=== PATIENT | female | born 1995 | race Hispanic/Latino ===

== ENCOUNTER 2023-08-04 09:18 | Inpatient (IN) | payer MEDICAID, OTHER ==
[2023-08-04 10:23] VITALS: BMI 29.7
[2023-08-04] MEDS ORDERED: Carboprost 250 MCG/ML AMP IM PRN (10:45)
[2023-08-04] MEDS ORDERED: Misoprostol 200 MCG TAB PR PRN (10:45)
[2023-08-04] MEDS ORDERED: Methylergonovine 0.2 MG/ML VIAL IM PRN (10:45)
[2023-08-04] MEDS ORDERED: Ibuprofen 800 MG TAB PO PRN (10:45)
[2023-08-04] MEDS ORDERED: Diphenoxylate HCl/Atropine Tablet PO PRN (10:45)
[2023-08-04] MEDS ORDERED: hydrALAZINE 20 MG/ML VIAL SLOW IVP PRN ×2 (10:45→23:56)
[2023-08-04] MEDS ORDERED: Lactated Ringer's 1,000 ML IV SCH (10:45)
[2023-08-04] MEDS ORDERED: Lidocaine 1% (PF) 30 ML VIAL SC PRN (10:45)
[2023-08-04] MEDS ORDERED: HYDROcodone/Acetaminophen 5/325 mg Tablet PO PRN ×2 (10:45→23:56)
[2023-08-04] MEDS ORDERED: Tranexamic Acid 1,000 MG/10 ML VIAL IVP PRN (10:45)
[2023-08-04] MEDS ORDERED: Promethazine HCl 25 MG/ML VIAL IM PRN ×2 (10:45→23:56)
[2023-08-04] MEDS ORDERED: Ondansetron PF 4 MG/2 ML Vial IVP PRN ×2 (10:45→23:56)
[2023-08-04] MEDS ORDERED: Acetaminophen 500 MG TAB PO PRN (10:45)
[2023-08-04] MEDS ORDERED: Oxytocin 30 units/NS 500 ML 500 ML IV SCH ×4 (10:45→23:56)
[2023-08-04] MEDS ORDERED: fentaNYL 50 mcg/mL 1 mL Vial SLOW IVP PRN (10:45)
[2023-08-04 11:07] LABS: Hematocrit 33.7 % (34.9-44.5); Hemoglobin 11.8 g/dL (12.0-15.5); Mean Corpuscular Hemoglobin 34.9 pg (27.0-33.0); Mean Corpuscular Volume 99.7 fl (81.6-98.3); Mean Platelet Volume 10.9 fl (7.4-10.4); Platelet Count 207 10x3/uL (150-450); RBC Distribution Width 12.3 % (11.5-14.5); Red Blood Cell (RBC) Count 3.38 10x6/uL (3.90-5.03); White Blood Cell (WBC) Count 8.7 10x3/uL (3.5-10.5)
[2023-08-04] MEDS ORDERED: Oxytocin 30 units/NS 500 ML 500 ML ONE (11:13)
[2023-08-04 11:45] LABS: Syphilis Antibody Nonreactive (Nonreactive); Syphilis Antibody Index 0.04 S/CO (<1.00 Non-Reactive)
[2023-08-04 11:47] LABS: HBSAg Index 0.17 S/CO (0-0.99); Hep B Surf Ag - L&D Non-Reactive S/CO (NonReactive)
[2023-08-04] MEDS ORDERED: fentaNYL/Ropivacaine Epidural 0 ML ONE (13:51)
[2023-08-04] MEDS ORDERED: Milk Of Magnesia 30 ML UDCUP PO PRN (23:56)
[2023-08-04] MEDS ORDERED: Lanolin Ointment 7 GM TUBE TOP PRN (23:56)
[2023-08-04] MEDS ORDERED: Boostrix 0.5 ML (Tdap) VIAL (>/=7 yrs of age) IM ONE (23:56)
[2023-08-04] MEDS ORDERED: Preparation H Ointment 28 GM TUBE PR PRN (23:56)
[2023-08-04] MEDS ORDERED: diphenhydrAMINE 25 MG CAP PO PRN (23:56)
[2023-08-04] MEDS ORDERED: Bisacodyl 10 MG SUPP PR PRN (23:56)
[2023-08-04] MEDS ORDERED: Benzocaine-Menthol 82.5 ML CAN TOP PRN (23:56)
[2023-08-05] MEDS: Ibuprofen 800 MG TAB PO SCH ×3 (00:11→15:45)
[2023-08-05] MEDS ORDERED: Docusate 100 MG CAP PO SCH ×2 (00:15→09:00)
[2023-08-05] MEDS ORDERED: Ferrous Sulfate 325 MG TAB PO SCH (08:00)
[2023-08-05] MEDS ORDERED: Prenatal Vitamin 1 TAB PO SCH (09:00)
[2023-08-05 11:49] VITALS: BP 113/71; TEMP 98.6
== END 2023-08-05 17:25 | disposition home or self-care (01) | DRG 807 ==
LOC: CSHLD 09:18 → CSHPP 08-05 00:20
PROVIDERS: ADMIT Family Medicine; ATTEND Family Medicine
PROC: 10E0XZZ Delivery of Products of Conception, External Approach (ICD-10-PCS; principal; 2023-08-04)
PROC: 10907ZC Drainage of Amniotic Fluid, Therapeutic from Products of Conception, Via Natural or Artificial Opening (ICD-10-PCS; 2023-08-04)
PROC: 0UQMXZZ Repair Vulva, External Approach (ICD-10-PCS; 2023-08-04)
DX: O71.82 Other specified trauma to perineum and vulva (principal); Z37.0 Single live birth; Z3A.39 39 weeks gestation of pregnancy
CPT/HCPCS: 36415; 51702; 85027; 86780; 86850; 86900; 86901; 87340